=== PATIENT | female | born 1975 | race Caucasian/White ===

== ENCOUNTER 2023-01-11 16:01 | Observation (INO) | payer MEDICAID, SELFPAY ==
--- NOTE | 2023-01-10 22:42 | HP.PCM_ITS ---
History and Physical Date of Admission: 01/11/23 HISTORY OF PRESENT ILLNESS 47 year old woman presents with complaints of bilateral macromastia as well as associated painful symptomatology of neck pain, thoracic back pain, bilateral shoulder pain from shoulder grooving from the weight of her breasts on her bra straps, and inframammary intertrigo for which she uses powders and deodorant with minimal relief and without resolution of her symptomatology over the past 6 months. She denies any trauma to her breasts.? Denies any nipple discharge.? She has difficulty with activities of daily living especially chores around the house because of her painful symptomatology. She sees a Chiropractor for over 6 months for her cervical and thoracic spine pain without relief of her painful symptomatology.? She had x-rays of the neck and thoracic spine done after her last appointment, 10/11/22, and were normal.? They showed there is no fracture.? There is no spondylolisthesis.? There are no degenerative changes.? ? Her last mammogram was on June.? It showed areas of scattered fibroglandular tissue.? A well-defined? ovoid mass is seen in the central 12:00 position of the right breast, increased in size from prior studies. ? No new or enlarging mass or focal asymmetry is identified.? No suspicious microcalcifications or foci of architectural distortion are seen.? Further evaluation with ultrasound is recommended.? Ultrasound was done on June 30, 2022.? It showed in the 12 oclock position of the right breast, approximately 7 cm from the nipple, there is a well-defined and smoothly marginated anechoic cyst identified, measuring up to 6 x 6 x 4 mm.? This is a benign finding.? She states in the last 6 months, she has lost about 17 lbs without relief in her painful breast symptomatology.? Since her last appointment on 10/11/22, she lost 11 more lbs without relief in her painful breast symptomatology.? We have received medical approval for the breast reduction surgery from her insurance carrier.? It is scheduled for January 11, 2023.? She presents today for a preop visit to answer any last minute questions before the surgery and to sign the office consent. PAST MEDICAL HISTORY Alcohol use Anxiety Back pain Breast lump Chronic neck pain Chronic thoracic back pain Depression Intertrigo Liver lesion Macromastia Migraine headache Non-smoker Recent weight loss Shoulder pain, left Shoulder pain, right Wears glasses PAST SURGICAL HISTORY History of foot surgery History of hysterectomy History of tonsillectomy ALLERGIES amoxicillin Penicillins MEDICATIONS rgvjzmy-xzcstgnvhmliz-mcompehy (Excedrin Migraine) fluoxetine (Prozac) ibuprofen semaglutide subcutaneous pen injector (Ozempic) FAMILY HISTORY Father - Heart disease, Myocardial infarction, Hypertension Other - Depression SOCIAL HISTORY Smoking Status:? Never smoker alcohol intake:? current substance use type:? does not use REVIEW OF SYSTEMS General - Denies fever.? Has fatigue and? 17 lb weight loss over last 6 months and since her last appointment on 10/11/22 lost an additional 11 lbs.? Eyes - Has cataracts.? Denies glaucoma. ENT - Denies nasal congestion and sore throat.? Endocrine - Denies excessive thirst and urination. Skin - Denies suspicious lesions and skin cancer.? Has inframammary intertrigo.? Has family history of skin cancer. Musculoskeletal - Has joint pain, joint stiffness, weakness of muscles and joints, and neck pain and back pain.? ? Her neck and back pain involve cervical and thoracic area.? Denies arthritis.? Has bilateral shoulder pain from shoulder grooving from the weight of her breasts on her bra straps. Neuro - Has headaches. Cardiovascular - Denies chest pain.?? Has fatigue shortne.? Denies shortness of breath with exertion. Psych - Denies anxiety.? Has depression. Respiratory - Denies shortness of breath.? Denies chronic cough.? Gastrointestinal - Denies nausea, vomiting, diarrhea, and constipation. Hematologic - Denies abnormal bruising and bleeding. Genitourinary - Denies hematuria and urinary frequency. PHYSICAL EXAMINATION General - Alert and oriented. Patient's bra size is DD cup.? Her height is 62.5 inches.? Her weight was 176.5 lbs and is now 165.3 lbs.? Her BMI was 31.7% and is now 29.7%.? Her BSA was 1.82m2 and is now 1.77m2. HEENT - PERRL. EOMI. Throat is clear. Neck - Supple.? No bony tenderness.? There is some pericervical soft tissue tenderness. Lungs- Clear to auscultation. Heart - Regular rate and rhythm. Breasts - Patient has bilateral macromastia.? No breast masses palpable. No axillary adenopathy noted.? Distance from midclavicular line on the left to the nipple is 31 cm and from the nipple to the inframammary fold is 12 cm. Distance from midclavicular line on the right to the nipple is 30 cm and from nipple to the inframammary fold is 11 cm. Nipple areolar complex diameter is 9 cm bilaterally.? No active inframammary intertrigo noted at this time. Abdomen - Soft and non distended. Back - No bony tenderness noted.? There is perivertebral soft tissue tenderness in the upper thoracic area. Extremities - FROM.? No axillary adenopathy.? Radial pulses are palpable. There is some bilateral shoulder tenderness with shoulder grooving from the weight of her breasts on her bra straps. Neuro - CN II-XII grossly intact. Psych - Normal and mood and affect. ASSESSMENT 1.? Bilateral macromastia. 2.? Neck pain. 3.? Thoracic back pain. 4.? Bilateral shoulder pain from shoulder grooving from the weight of the breasts on her bra straps. 5.? Inframammary intertrigo. 6.? Recent weight loss. PLAN Discussed with the patient the procedure of breast reduction mammoplasty.? I feel this procedure would be beneficial in this patient as it would help relieve her painful symptomatology. Patient states her last mammogram was on June 30, 2022.? It showed areas of scattered fibroglandular tissue.? A well-defined? ovoid mass is seen in the central 12:00 position of the right breast, increased in size from prior studies. ? No new or enlarging mass or focal asymmetry is identified.? No suspicious microcalcifications or foci of architectural distortion are seen.? Further evaluation with ultrasound is recommended.? Ultrasound was done on June 30, 2022.? It showed in the 12 oclock position of the right breast, approximately 7 cm from the nipple, there is a well-defined and smoothly marginated anechoic cyst identified, measuring up to 6 x 6 x 4 mm.? This is a benign finding.? Postoperatively, she would get a breast reduction baseline mammogram at some point. She had x-rays of her neck and thoracic spine on 10/11/22. ? They were normal.? They showed there is no fracture.? There is no spondylolisthesis.? There are no degenerative changes. Based on the Schnur Sliding Scale, I would remove approximately 457 grams of breast tissue per side.? We will send the tissue to pathology for analysis to rule out carcinoma. This sliding scale helps to determine the minimum required amount of tissue that needs to be removed from each breast in order for it to be considered a medical need.? That calculation was after her last appointment on 10/11/22.? Since then she lost an additional 11 lbs. ? Her BSA was 1.82m2 an is now 1.77m2 which corresponds to 419 grams of breast tissue needed to be removed from each breast. Discussed with patient the extent of scarring for this procedure.? The biggest risk for wound healing problems is the T-zone area.? Usually wound care and sometimes antibiotics are necessary for healing in this area. ? She would have drains in for a few days depending on the amount of tissue that is removed.? She will be on antibiotics until the drains are removed. In general, the final breast size would range from a high B to a low C cup.? Patient voices understanding and would be happy with either size. Surgery will be done under general anesthesia with a surgical observation overnight stay in the hospital. We have receive medical approval for the breast reduction surgery from her insurance carrier with 457 grams of breast tissue to be removed from each breast.? With the additional weight loss that amount has decreased to 419 grams.? She didn't want to resubmit to the insurance company for the lower amount.? Her surgery is next week and she wants to proceed.? We should be able to remove the 457 grams and still be within the high B to to low C range. Patient was informed of the risks and complications of the procedure including alternatives to surgery.? These were discussed with her personally.? She voices understanding and wishes to proceed. Some of the risks and complications were included in a form from the [employer]. Potential risks and complications included but not inclusive of bleeding, infection, seroma, hematoma, bruising, swelling, prolonged need for drains, loss of sensation to skin, partial or complete loss of skin flap and/or nipple, wound breakdown, need for wound care, poor scarring, poor aesthetic outcome, intra operative cardiac or neurologic events, DVT, PE, and reaction to anesthesia. She had preop questions about the surgery that were answered personally and to her satisfaction.? Her office consent was signed. Her surgery is scheduled for January 11, 2023. Assessment & Plan Assessment/Plan (1) Macromastia: (2) Chronic neck pain: (3) Chronic thoracic back pain: (4) Intertrigo: (5) Shoulder pain, left: (6) Shoulder pain, right: (7) Recent weight loss:
[2023-01-11] VITALS (9 sets, daily range): BP systolic 89–129; BP diastolic 60–74; PULSE 79–100; RESP 11–18; TEMP 36.6–37.3; O2SAT 93–99; BMI 28.9
[2023-01-11] MEDS: Acetaminophen 500 MG Tablet 1000 MG PO ×3 (06:21→23:52)
[2023-01-11] MEDS: Gabapentin 600 MG Tablet PO (06:21)
[2023-01-11] MEDS: Scopolamine 1mg/72hr Patch 1 PATCH TD (06:21)
[2023-01-11] MEDS: Lactated Ringers 1,000 ML 40 ML IV (06:22)
--- NOTE | 2023-01-11 07:30 | BR_PTH ---
PATIENT: JULIEN GARCIA LOC: MS3 U#:[id number] AGE/SX: 47/F ROOM: [facility] RE01/11/[address]: Dr. Juanito Taylor MD : 1975 BED: 1 DIS: 01/12/2023 SPEC #: [id number] RECD: 01/11/23 14:10 STATUS: ROBERTO CHAPARRO #: [id number] YUN: 01/11/23 07:[address]: Juanito Taylor DEPT: SURGICAL PATHOLOGY RECD BY: Diana Basurto ENTERED: 01/12/23 07:49 SP TYPE: MAMOPLASTY OTHR DR: Dr. Regina Yusuf MD Tissues: A - Left breast, NOS B - Right breast, NOS Procedures: Surgery Specimen Level IV HEADER OPERATION: ERAS, breast reduction, mammoplasty PRE-OP DIAGNOSIS: Bilateral macromastia, neck and thoracic back pain, bilateral shoulder pain, inframammary intertrigo TISSUE SUBMITTED: A ? Left breast tissue, B ? Right breast tissue MICROSCOPIC DIAGNOSIS A. Left breast tissue, breast reduction/mammoplasty: Benign breast tissue with focal fibrocystic changes, adenosis and intraductal hyperplasia without atypia (568 gm). A minute fibroadenoma (0.2 cm in greatest dimension). Focal microcalcifications. B. Right breast tissue, breast reduction/mammoplasty: Benign breast tissue with focal fibrocystic changes and intraductal hyperplasia without atypia (591?gm). Focal microcalcifications. SJ:kate 01/16/2023 MICROSCOPIC DESCRIPTION Slides are reviewed. GROSS DESCRIPTION A - Received in fixative is one container labeled with the patient's name and designated left breast tissue. The specimen consists of 18 fragments of geiger-yellow fibrofatty tissue ranging in size from <0.1 to 12.0 cm and in aggregate weighing 568 gm. Grossly unremarkable fragments of skin are adherent to the larger fragments. Serial sections reveal mostly yellow cut surfaces with focal white fibrous streaks. No mass lesions are identified. Trim Operator sections are submitted in five cassettes after additional fixation. B - Received in fixative is one container labeled with the patient's name and designated right breast tissue. The specimen consists of multiple fragments of geiger-yellow fibrofatty tissue ranging in size from <0.1 to 11.0 cm (>30 in number) and in aggregate weighing 591 gm. Grossly unremarkable fragments of skin are adherent to the larger fragments. Serial sections reveal mostly yellow cut surfaces with focal white fibrous streaks. No mass lesions are identified. Trim Operator sections are submitted in five cassettes after additional fixation. / AM:kate 01/12/2023 TC:5 CPT: 37932 x2
[2023-01-11 07:50] LABS: Bedside Glucose 117 mg/dL (74-106)
[2023-01-11] MEDS: Clindamycin 900 MG/50 ML BAG 75 MG IV (08:15)
[2023-01-11] MEDS: Magnesium 1 GM over 15 mins IV (08:25)
[2023-01-11] MEDS: Lidocaine 1% /Epi 1:100 (20ml) 20 ML Vial (08:36)
[2023-01-11] MEDS: Lactated Ringers 1,000 ML 60 ML IV ×2 (15:04→17:13)
--- NOTE | 2023-01-11 15:46 | PCM.OPRPT ---
Problems Associated Problem List Diagnoses (1) Macromastia: (2) Chronic neck pain: (3) Chronic thoracic back pain: (4) Intertrigo: (5) Shoulder pain, left: (6) Shoulder pain, right: (7) Recent weight loss: Report of Operation Date of Procedure: 01/11/23 Pre-Operative Diagnosis: 1. Bilateral macromastia. 2. Neck pain. 3. Thoracic back pain. 4. Bilateral shoulder pain from shoulder grooving from the weight of the breasts on her bra straps. 5. Inframammary intertrigo. 6. Recent weight loss. Post-Operative Diagnosis: Same. Surgery/Procedure Performed:: Bilateral breast reduction mammaplasty. Description of Surgical Findings:: 47 year old woman presents with complaints of bilateral macromastia as well as associated painful symptomatology of neck pain, thoracic back pain, bilateral shoulder pain from shoulder grooving from the weight of her breasts on her bra straps, and inframammary intertrigo for which she uses powders and deodorant with minimal relief and without resolution of her symptomatology over the past 6 months. She denies any trauma to her breasts.? Denies any nipple discharge.? She has difficulty with activities of daily living especially chores around the house because of her painful symptomatology. She sees a Chiropractor for over 6 months for her cervical and thoracic spine pain without relief of her painful symptomatology.? She had x-rays of the neck and thoracic spine done after her last appointment, 10/11/22, and were normal.? They showed there is no fracture.? There is no spondylolisthesis.? There are no degenerative changes.? ? Her last mammogram was on June.? It showed areas of scattered fibroglandular tissue.? A well-defined? ovoid mass is seen in the central 12:00 position of the right breast, increased in size from prior studies. ? No new or enlarging mass or focal asymmetry is identified.? No suspicious microcalcifications or foci of architectural distortion are seen.? Further evaluation with ultrasound is recommended.? Ultrasound was done on June 30, 2022.? It showed in the 12 oclock position of the right breast, approximately 7 cm from the nipple, there is a well-defined and smoothly marginated anechoic cyst identified, measuring up to 6 x 6 x 4 mm.? This is a benign finding.? She states in the last 6 months, she has lost about 17 lbs without relief in her painful breast symptomatology.? Since her last appointment on 10/11/22, she lost 11 more lbs without relief in her painful breast symptomatology.? We have received medical approval for the breast reduction surgery from her insurance carrier.? It is scheduled for January 11, 2023.? Patient was informed of the risks and complications of the procedure including alternatives to surgery. These were discussed with the patient personally. Patient voices understanding and wishes to proceed. Some of the risks and complications were included in a form from the [employer]. Potential risks and complications included but not inclusive of bleeding, infection, seroma, hematoma, bruising, swelling, prolonged need for drains, loss of sensation to skin, partial or complete loss of skin flap and/or nipple, wound breakdown, need for wound care, poor scarring, poor aesthetic outcome, intra operative cardiac or neurologic events, DVT, PE, and reaction to anesthesia. Urine Output - 500 ml. Tissue removed from the left breast - 530 grams. Tissue removed from the right breast - 566 grams. I used AxioFill Placental Connective Tissue Powder, (I used 500 mg x2, one in each breast at the one). Catalog Number - [id number]. Lot Number - [id number]. Expiration - July 12, 2027, (Left Breast). Catalog Number - [id number]. Lot Number - [id number]. Expiration - June 11, 2027, (Right Breast). I used Zina absorbable hemostat, (I used 4 vials, 2 in each breast). Reference Number - [id number]. Lot Number - [id number]. Expiration - August 08, 2027, (One in Left Breast, One in Right Breast). Reference Number - [id number]. Lot Number - [id number]. Expiration - August 08, 2027, (One in Left Breast, One in Right Breast). Surgeon: Juanito Taylor MD model making supervisor: Kyle Smyth RNFA model making supervisor: Shayy Webster RNFA Type of Anesthesia: General Anesthesiologist: Ayan Eaton MD and Serjio Overton CRNA and Heather Huertas CRNA Specimen's removed: 1. Left breast tissue to Pathology. 2. Right breast tissue to Pathology. Drains: Greg x2 (one in each breast). Estimated Blood Loss (mL): 150 ml. Fluids Replaced: Urine Output - 500 ml. Description of Procedure: In the preop area, the patient was placed in the sitting position and preoperative markings were made.? The sternum midline was marked down to the umbilicus.? The inframammary folds were marked bilaterally.? The midclavicular line was then marked down to the nipple, then from the nipple to the inframammary fold.? The inframammary fold was then superimposed on the midclavicular line and I made a point 1 cm below that to be the new position of the nipple-areolar complex.? 7 cm lines were then drawn divergent from that point to encompass the nipple-areolar complex.? The distance between the divergent lines was 10 cm.? The patient was then placed in the supine position and taken to the operating room and placed under general anesthesia and her breasts were prepped and draped in usual fashion.? Ioban draping was also used.? SCDs were placed for DVT prophylaxis.? Perioperative antibiotics were given intravenously.? A Christiansen catheter was also placed. ? I then vidal straight lines down from the lines drawn divergent around the nipple-areolar complex down to the inframammary fold.? The width of the pedicle is 10 cm.? I then used a 45 mm circular template for a new size of the nipple-areolar complex.? The central markings were infiltrated with Xylocaine and epinephrine.? The central skin was then deepithelialized.? I started on the left side first and then went to the right side.? I then mobilized medial and lateral breast flaps at the level of Joann's fascia down to about 1-2 cm from the chest wall.? This was met in the midline of the breast with dissection at the level of Joann's fascia down to about 1-2 cm from the chest wall.? Once the central breast mound pedicle was from the skin envelope, the reduction was then begun.? Most of the tissue was removed from the superior aspect of the breast and the lateral aspect of the breast.? I then sutured the leading edge of the medial and lateral breast flaps to the midline of the inframammary fold with 2-0 Vicryl suture.? The vertical incision was approximated using surgical clips.? The excess tissue from the medial and lateral breast flaps were excised and the horizontal incision was approximated using surgical clips.? The patient was then placed in a sitting position.? Using a vertical limb length of 5 cm, I vidal the new position of the new nipple-areolar complexes on both breasts.? They were in good position on the central aspect of the breast mound.? Good symmetry was noted between the left breast and the right breast.? Good shape and contour and projection were noted and appeared clinically to be a high B cup or a low C cup.? The patient was then placed back in the supine position and the surgical clips were removed.? The breast wounds were then irrigated with Irrisept 0.05% Chlorhexidine solution which was followed by saline irrigation.? Hemostasis was obtained using electrocautery.? The tissue removed from the left breast was 530 grams grams.? The tissue removed from the right breast was 566 grams.? The tissue that was removed from the breasts was sent to Pathology for analysis to rule out carcinoma. ? After hemostasis was obtained using electrocautery, I then sprayed Zina absorbable hemostat into both breast wounds.? I used two vials for each side.? I then placed a size 15 Greg drain into each breast wound to be brought through the lateral aspect of the horizontal incision.? I then closed the breast wounds by first approximating the leading edge of the medial and lateral breast flaps to the midline of the inframammary fold with 2-0 Vicryl suture.? I then placed AxioFill placental connective tissue powder into both wounds at the level of the Tzone to help with the healing process. I used 500 mg in each breast. ? The deep dermis and subcutaneous tissue of the vertical incision and the horizontal incisions were approximated using 3-0 Monocryl interrupted sutures.? ? The horizontal incision was then approximated using 4-0 V-Loc unidirectional barbed running subcuticular suture.? I also placed a few 4-0 Prolene vertical mattress interrupted sutures at the level of the Tzone.? The vertical incision was then closed on the skin with 4-0 Prolene interrupted sutures.? With a vertical limb length of 5 cm, I vidal a circular incision where the nipple-areolar complex would be brought through this keyhole incision.? Incisions were made and the nipple areolar complex was brought through the keyhole incision.? The nipple-areolar complex was secured to the breast skin using 3-0 Monocryl interrupted sutures for deep dermis and subcutaneous tissue.? The skin was approximated using 4-0 Prolene simple interrupted sutures.? This was then covered with Histoacryl skin tissue adhesive.? I sutured the drains to the skin using 3-0 nylon pursestring suture.? At the end of the procedure, the breasts were soft with no evidence of vascular compromise.? No evidence of hematomas were noted.? The nipples were viable.? I then dressed the breasts with a Kerlix gauze and a compression surgical bra.? Then patient tolerated the procedure well and will be sent to the recovery room in satisfactory condition.? She will be admitted for surgical observation overnight stay.? She will go home tomorrow once she is tolerating oral pain medication.? I will remove the drains in a few days.? She will keep her head elevated during the initial postoperative period.? She will be maintained on a lifting restriction and keep her head elevated during the initial postoperative period.? The operative blood loss was about 150 ml.? Post-discharge, she may get a compression sports bra as well.? She will have the Christiansen removed in the morning.? She will be sent home on antibiotics and pain medicine.? Sutures will be removed in 1-2 weeks. Grafts/Implants Used: AxioFill Placental Connective Tissue Powder x2, Zina x4. Procedure Start Time: 08:36 Procedure Stop Time: 14:34 Complications None. Admit VTE Documentation VTE Present on Admission: No VTE Mechan Device Prophylaxis: SCD's VTE Pharm Prophylaxis ordered?: Yes Addendum Addendum: Surgery Charges CPT - 86998-26 ICD-10 - N62, M54.2, M54.6, M25.511, M25.512, L30.4, R63.4 80545 N62, M54.2, M54.6, M25.511, M25.512, L30.4, R63.4
[2023-01-11] MEDS: Gabapentin 100 MG Capsule 200 MG PO (17:11)
[2023-01-11] MEDS: Ensure Surgery 237 ML LIQUID PO (17:12)
[2023-01-11] MEDS: oxyCODONE 5 MG Tablet PO (18:23)
[2023-01-11] MEDS: Docusate Sodium 100 MG Capsule PO (21:53)
[2023-01-11] MEDS: Clindamycin 600 MG/50 ML BAG 100 MG IV (21:53)
[2023-01-12] MEDS: oxyCODONE 5 MG Tablet PO (00:05)
[2023-01-12 00:09] VITALS: BP 89/58; PULSE 76; RESP 13; TEMP 37.2; O2SAT 97
[2023-01-12] MEDS: Acetaminophen 500 MG Tablet 1000 MG PO ×2 (04:53→12:20)
[2023-01-12] MEDS: Clindamycin 600 MG/50 ML BAG 100 MG IV (04:53)
[2023-01-12 05:00] VITALS: BP 93/60; PULSE 83; RESP 13; TEMP 37.1; O2SAT 96
[2023-01-12 07:35] LABS: Hematocrit 29.9 % (37-47); Hemoglobin 9.7 g/dL (12.0-15.0); Mean Corp Hgb Conc 32.4 g/dL (32-36); Mean Corpuscular Hgb 31.5 pg (27.0-32.0); Mean Corpuscular Volume 97.1 fL (81-99); Mean Platelet Vol. 9.7 fl (6.2-12.0); Platelet Count 285 K/mm3 (150-450); RBC Distribution Width CV 12.8 % (11.6-14.6); RBC Distribution Width SD 45.6 fl (35.1-43.9); Red Blood Count 3.08 M/mm3 (4.2-5.4); White Blood Count 8.5 K/mm3 (4.4-11.0)
[2023-01-12 07:42] VITALS: O2SAT 95
[2023-01-12 07:44] LABS: Anion Gap 5 (5-15); BUN 9 mg/dL (7-18); BUN/Creat Ratio 15.4 RATIO (10-20); Calcium,Total 8.4 mg/dL (8.5-10.1); Chloride 107 mmol/L (98-107); Creatinine, Serum 0.58 mg/dL (0.55-1.02); EST Glomerular Filtration Rate 118 mL/min (>60); Est Glom Filt Rate - Afr Amer 143 mL/min (>60); Estimated Creatinine Clearance 101.32 ml/min; Glucose 98 mg/dL (74-106); Potassium 3.8 mmol/L (3.5-5.1); Prealbumin 14.9 mg/dL (20.0-40.0); Sodium Level 141 mmol/L (136-145)
[2023-01-12 08:33] VITALS: BP 98/63; PULSE 80; RESP 18; TEMP 36.6; O2SAT 96
[2023-01-12] MEDS: Lactated Ringers 1,000 ML 60 ML IV (09:48)
[2023-01-12] MEDS: Gabapentin 100 MG Capsule 200 MG PO ×2 (09:50→14:29)
[2023-01-12] MEDS: Enoxaparin 40 MG/0.4 ML Syringe SC (09:51)
[2023-01-12] MEDS: Fluoxetine HCl 40 MG CAPSULE PO (09:51)
[2023-01-12] MEDS: Docusate Sodium 100 MG Capsule PO (09:51)
--- NOTE | 2023-01-12 14:18 | DCINST_ITS ---
Discharge Instructions Diet Discharge Diet: No restrictions (encourage increase protein intake to help with wound healing.) Activity Discharge Activity: May Not Shower May resume sexual activity in: 10-14 days Lifting Restrictions: 20 lb weight lifting restrictions Additional Activity Instructions:: Keep head elevated Dressing / Incision Call your doctor if your incision/area has: Continuous Slow Oozing, Sudden Increased Bleeding, Increased Pain/ Swelling, Increased Redness and Foul Smelling Discharge Call your doctor if you observe: Fever of 101 or Higher, Inability to urinate, Inability to have a bowel movement, Shortness of breath, Chest pain, Calf discomfort and Uncontrolled pain Change Dressing in: leave in place till F/U Cleanse incision/area with: Do not get Incision Wet Drain: Suction Additional Dressing/Incision Instructions:: Keep track of drainage Follow Up Care Please Follow Up With: Juanito Taylor MD When: MondayJanuary 16 at 4:00 pm at [facility]. If this does not work for you, please call [phone]. Test Results: Test results from this visit will be discussed in further detail at your follow- up appointment, if applicable. Discharge Plan Admission Admit Date/Time: 01/11/23 16:01 Attending Provider: Juanito Taylor Primary Care Provider: Regina Yusuf Discharge Orders/Prescriptions Prescriptions: New L.acidoph,saliva-B.bif-S.therm [Acidophilus Probiotic Blend] 175 mg capsule 1 cap PO DAILY 10 Days Qty: 10 0RF clindamycin HCl 300 mg capsule 300 mg PO TID 5 Days Qty: 15 0RF docusate sodium [Colace] 100 mg capsule 100 mg PO DAILY 30 Days Qty: 30 0RF Continued fluoxetine [Prozac] 40 mg capsule 40 mg PO DAILY Ozempic 0.25 mg or 0.5 mg(2 mg/1.5 mL) pen injector 1 mg subcut MACDONALD Held ibuprofen 600 mg tablet 600 mg PO Q6H PRN (Reason: Pain) Hold Instructions: Resume on 01/19/23. Excedrin Migraine 250-250-65 mg tablet 1 tab PO ONCE PRN (Reason: Migraine Headache) Hold Instructions: Resume on 01/19/23. Referrals / Follow Up: Regina Yusuf MD [Primary Care Provider] - Disposition Disposition (needs filled in before D/C Order can be placed): Home, Self Care
[2023-01-12] MEDS: Clindamycin in 0.9% Sod Chlor 600 MG/50 ML BAG 100 MG IV (14:29)
--- NOTE | 2023-01-12 14:33 | PCM.PN.SRG ---
Subjective Subjective Postop #1 Patient states that pain is well controlled. She is denying any complaints of nausea. Objective Data Objective Data Vital Signs: Vital Signs Temp Pulse Resp BP Pulse Ox O2 Del Method O2 Flow Rate 97.9 F 80 18 98/63 96 Room Air 4 01/12/23 08:33 01/12/23 08:33 01/12/23 08:33 01/12/23 08:33 01/12/23 08:33 01/12/23 08:33 01/11/23 16:33 Oxygen Flow Rate (L/min) 4 Oxygen Delivery Method Room Air Weight: 163 lb 2.273 oz Body Mass Index (BMI) 28.9 Intake & Output: Intake and Output for Last 24 Hours 01/10/23 01/11/23 01/12/23 23:59 23:59 23:59 Intake Total 3611 / 4611 3270 / 3270 Output Total 1604 / 2094 1730 / 1730 Balance 2006 1540 / 1540 Left breast Greg drain has been 117 ml since surgery. Right breast Greg drain 157 ml since surgery. Lab / Micro Data Result Diagrams: 01/12/23 06:12 01/12/23 06:12 Labs: Laboratory Results - last 24 hr 01/12/23 06:12: WBC 8.5, RBC 3.08 L, Hgb 9.7 L, Hct 29.9 L, MCV 97.1, MCH 31.5, MCHC 32.4, RDW Std Deviation 45.6 H, RDW Coeff of Fredi 12.8, Plt Count 285, MPV 9.7 01/12/23 06:12: Sodium 141, Potassium 3.8, Chloride 107, Carbon Dioxide 29.0, Anion Gap 5, BUN 9, Creatinine 0.58, Estim Creat Clear Calc 101.32, Est GFR (MDRD) Af Amer 143, Est GFR (MDRD) Non-Af 118, BUN/Creatinine Ratio 15.4, Glucose 98, Calcium 8.4 L, Prealbumin 14.9 L Physical Exam Const oriented x3 HEENT normocephalic Eyes General Eye: normal appearance of both eyes Neck full ROM Resp normal respiratory effort Cardio regular rate Back/Spine normal ROM Extremity full ROM Skin Skin Narrative: Bilateral breast incisions and sutures are dry and intact. Nipples are viable. She has some bruising on bilateral breasts. Greg drains are draining serosanguineous fluid. Neuro oriented x3 Psych mental status grossly normal and cooperative Assessment & Plan Assessment/Plan (1) Macromastia: (2) Chronic neck pain: (3) Chronic thoracic back pain: (4) Intertrigo: (5) Shoulder pain, left: (6) Shoulder pain, right: (7) Recent weight loss: (8) Back problem: PLAN: Plan Patient states pain is well controlled with oral pain medications. Operative dressing removed. Incisions and sutures are dry and intact. Breasts are soft and symmetrical. Nipples viable. Some bruising on bilateral breasts. Dry gauze dressing placed, secured with PATITO wrap. Instructed to wear compression at all times. Greg drains draining serosanguineous drainage. Keep measurement of drainage and bring to office on Monday where the drains will be removed. Continue Clindamycin TID until drains removed. Instructed to keep head elevated. Prescribed stool softener. 20 lb weight lifting restriction. Follow up Monday01/16/23 at 4:00 pm. Will plan on removing drains at that time.
--- NOTE | 2023-01-12 16:16 | NURSING ---
script sent for percocet for pt by dr bejarano office, pt aware and will stop and pick it up
== END 2023-01-12 16:05 | disposition home or self-care (01) ==
LOC: MS3 01-12 08:29
PROVIDERS: Anesthesiology; Admitting Provider Surgery; PCP Family Medicine; Referring Provider Surgery; Visit Provider Surgery
PROC: 0H0U0ZZ Alteration of Left Breast, Open Approach (ICD-10-PCS; CPT 19318; principal; 2023-01-11 07:15)
DX: N62 Hypertrophy of breast (principal); M54.2 Cervicalgia; M54.6 Pain in thoracic spine; M25.512 Pain in left shoulder; G89.29 Other chronic pain; M25.511 Pain in right shoulder; Z79.899 Other long term (current) drug therapy; L30.4 Erythema intertrigo; F32.A Depression, unspecified; F41.9 Anxiety disorder, unspecified
CPT/HCPCS: 19318; 00402; J2405; Q9968; 80048; 82962; 83735; 84134; 85027; 88305; 94668; 96365; 96366; 96367; 96372; 99221; 99252; J7120; G0378; G0463; J3475

== ENCOUNTER → 2023-02-07 | Outpatient (CLI) | payer MEDICAID, SELFPAY ==
[2023-02-07 13:49] LABS: Hematocrit 36.9 % (37-47); Hemoglobin 11.9 g/dL (12.0-15.0); Mean Corp Hgb Conc 32.2 g/dL (32-36); Mean Corpuscular Hgb 31.5 pg (27.0-32.0); Mean Corpuscular Volume 97.6 fL (81-99); Mean Platelet Vol. 9.6 fl (6.2-12.0); Platelet Count 326 K/mm3 (150-450); RBC Distribution Width CV 12.7 % (11.6-14.6); RBC Distribution Width SD 45.4 fl (35.1-43.9); Red Blood Count 3.78 M/mm3 (4.2-5.4); White Blood Count 6.3 K/mm3 (4.4-11.0)
== END | disposition home or self-care (01) ==
PROVIDERS: PCP Family Medicine; Referring Provider Surgery; Visit Provider Surgery
DX: T81.89XA Other complications of procedures, not elsewhere classified, initial encounter (principal); Z98.890 Other specified postprocedural states; D62 Acute posthemorrhagic anemia
CPT/HCPCS: 36415; 85027; 87070; 87075; 87186; 87205